=== PATIENT | male | born 1970 | race American Indian/Alaskan Native ===

== ENCOUNTER 2021-09-17 14:45 | Emergency (ER) | payer SELFPAY ==
[2021-09-17 17:07] VITALS: BP 163/107
--- NOTE | 2021-09-17 17:30 | Emergency Department Report ---
- General Chief Complaint: Sore Throat Stated Complaint: COLD/TOOTHACHE Time Seen by Provider: 09/17/21 17:08 Source: patient Mode of arrival: Ambulatory Limitations: No Limitations - History of Present Illness Initial Comments: 50-year-old black male with no past medical history presents to the emergency department for evaluation of cough cold congestion and toothache. He states that he sweats a lot at night and his roommate has had the air conditioner on low and he thinks that he has developed a cold. He also complains of right lower toothache pain. He denies fever, shortness of breath, chest pain. MD Complaint: cough, rhinorrhea -: Gradual, days(s) Severity: mild (1) Associated Symptoms: rhinorrhea, nasal congestion, cough. denies: fever, chills, myalgias, diaphoresis, headache, sore throat, stiff neck, chest pain, shortness of breath, abdominal pain, nausea, vomiting, diarrhea, dysuria, rash, confusion, right sweats, epistaxis, hoarseness, ear pain - Related Data Previous Rx's Medication Instructions Recorded Last Taken Type Amoxicillin [Amoxicillin TAB] 875 mg PO BID 7 Days #14 tab 09/17/21 Unknown Rx Ibuprofen [Motrin 600 MG tab] 600 mg PO Q8H PRN #21 tablet 09/17/21 Unknown Rx Allergies Allergy/AdvReac Type Severity Reaction Status Date / Time No Known Allergies Allergy Verified 09/17/21 17:00 ED Review of Systems ROS: Stated complaint: COLD/TOOTHACHE Other details as noted in HPI Comment: All other systems reviewed and negative Constitutional: denies: chills, fever Eyes: denies: eye discharge, vision change ENT: dental pain. denies: ear pain, throat pain, hearing loss, congestion Respiratory: cough. denies: shortness of breath, SOB with exertion, SOB at rest Cardiovascular: denies: chest pain, palpitations Gastrointestinal: denies: abdominal pain, nausea, vomiting, diarrhea Genitourinary: denies: urgency, dysuria Musculoskeletal: denies: back pain Skin: denies: rash Neurological: denies: headache, weakness Psychiatric: denies: anxiety, depression ED Past Medical Hx - Past Medical History Hx Hypertension: Yes Hx Heart Attack/AMI: Yes Hx Congestive Heart Failure: Yes Additional medical history: thyroid - Surgical History Past Surgical History?: No - Social History Smoking Status: Current Every Day Smoker Substance Use Type: None - Medications Home Medications: Home Medications Medication Instructions Recorded Confirmed Last Taken Type Amoxicillin [Amoxicillin TAB] 875 mg PO BID 7 Days #14 tab 09/17/21 Unknown Rx Ibuprofen [Motrin 600 MG tab] 600 mg PO Q8H PRN #21 tablet 09/17/21 Unknown Rx ED Physical Exam - General Limitations: No Limitations General appearance: alert, in no apparent distress - Head Head exam: Present: atraumatic, normocephalic - Eye Eye exam: Present: normal appearance. Absent: conjunctival injection - Expanded ENT Exam Expanded Teeth exam: Present: dental caries, fractured tooth # (30), dental tenderness # (30) Throat exam: Positive: normal inspection. Negative: tonsillar erythema, tonsillomegaly, tonsillar exudate, R peritonsillar mass, L peritonsillar mass - Neck Neck exam: Present: normal inspection. Absent: lymphadenopathy - Respiratory Respiratory exam: Present: normal lung sounds bilaterally. Absent: respiratory distress, wheezes, rales, rhonchi, stridor, chest wall tenderness, accessory muscle use - Cardiovascular Cardiovascular Exam: Present: regular rate, normal heart sounds - GI/Abdominal GI/Abdominal exam: Present: soft, normal bowel sounds. Absent: distended, tenderness, rebound, rigid - Extremities Exam Extremities exam: Present: normal inspection, normal capillary refill. Absent: tenderness, pedal edema, joint swelling, calf tenderness - Back Exam Back exam: Present: normal inspection. Absent: CVA tenderness (R), CVA tenderness (L) - Neurological Exam Neurological exam: Present: alert, oriented X3, normal gait - Psychiatric Psychiatric exam: Present: normal affect, normal mood - Skin Skin exam: Present: warm, dry, intact, normal color ED Course Vital Signs 09/17/21 17:00 Temperature 98.4 F Pulse Rate 88 Respiratory 18 Rate Blood Pressure 163/107 Blood Pressure 163/107 [Right] O2 Sat by Pulse 97 Oximetry ED Medical Decision Making - Medical Decision Making 50-year-old black male with no past medical history presents to the emergency department for evaluation of cough cold congestion and toothache. He states that he sweats a lot at night and his roommate has had the air conditioner on low and he thinks that he has developed a cold. He also complains of right lower toothache pain. He denies fever, shortness of breath, chest pain. Exam consistent with URI with cough and congestion. Patient continues to deny shortness of breath and chest pain. Noted to have fracture of tooth #30 along with minimal erythema and edema to the gum surrounding area. No abscess noted. Patient will be treated with 7-day course of amoxicillin and naproxen. He is advised to follow-up with dentist and primary care provider for further evaluation and management. He verbalized understanding of and agreement with plan of care. Critical care attestation.: If time is entered above; I have spent that time in minutes in the direct care of this critically ill patient, excluding procedure time. ED Disposition Clinical Impression: Pain due to dental caries, URI with cough and congestion Disposition: 01 HOME / SELF CARE / HOMELESS Is pt being admited?: No Does the pt Need Aspirin: No Condition: Stable Instructions: Cough, Adult, [id number], Dental Abscess, [id number], Upper Respiratory Infection, Adult, [id number] Additional Instructions: Take medications as prescribed. Follow-up with with dentist for further evaluation of tooth and primary care provider. Return to the emergency department as needed. Prescriptions: Amoxicillin [Amoxicillin TAB] 875 mg PO BID 7 Days #14 tab Ibuprofen [Motrin 600 MG tab] 600 mg PO Q8H PRN #21 tablet PRN Reason: Pain Referrals: [facility] [Outside] - 3-5 Days [facility] [Outside] - 3-5 Days Forms: Work/School Release Form(ED) Time of Disposition: 17:30
== END 2021-09-17 18:56 | disposition home or self-care (01) ==
LOC: ED 14:45
DX: K02.9 Dental caries, unspecified (principal); J06.9 Acute upper respiratory infection, unspecified; I10 Essential (primary) hypertension; F17.200 Nicotine dependence, unspecified, uncomplicated
CPT/HCPCS: 99282

== ENCOUNTER 2021-09-21 14:36 | Emergency (ER) | payer SELFPAY ==
[2021-09-21] MEDS ORDERED: predniSONE 50 MG TAB PO ONE (17:58)
[2021-09-21] MEDS ORDERED: AZITHROMYCIN 250 MG TAB PO ONE (17:59)
--- NOTE | 2021-09-21 18:01 | Emergency Department Report ---
HPI - General Chief Complaint: Medical Clearance Time Seen by Provider: 09/21/21 17:55 - HPI HPI: For the last 4 days the patient has been complaining of nasal congestion with clear discharge and a yellow sputum productive cough. He denies nausea vomiting fever chills shortness of breath anosmia or any other associated symptoms. He has not been vaccinated for the COVID-19 virus. He has taken no medications for this. Mother makes this better nor worse. ED Past Medical Hx - Past Medical History Hx Hypertension: Yes Hx Heart Attack/AMI: Yes Hx Congestive Heart Failure: Yes Additional medical history: thyroid - Surgical History Past Surgical History?: No - Social History Smoking Status: Current Every Day Smoker Substance Use Type: None - Medications Home Medications: Home Medications Medication Instructions Recorded Confirmed Last Taken Type Amoxicillin [Amoxicillin TAB] 875 mg PO BID 7 Days #14 tab 09/17/21 09/21/21 Unknown Rx Ibuprofen [Motrin 600 MG tab] 600 mg PO Q8H PRN #21 tablet 09/17/21 09/21/21 Unknown Rx Albuterol Mdi (or & Nicu Only) 1 puff IH QID PRN #8.5 gram 09/21/21 Unknown Rx [ProAir HFA Inhaler] Benzonatate [Tessalon Perles] 100 mg PO Q8HR #21 cap 09/21/21 Unknown Rx predniSONE [Deltasone] 50 mg PO QDAY 5 Days #5 tab 09/21/21 Unknown Rx ED Review of Systems ROS: Stated complaint: COLD SX Other details as noted in HPI Comment: All other systems reviewed and negative Physical Exam - Physical Exam Vital Signs: Vital Signs 09/21/21 09/21/21 09/21/21 17:10 17:52 17:53 Temperature 98.4 F 98.4 F 98.2 F Pulse Rate 93 H 77 77 Respiratory 20 20 20 Rate Blood Pressure 128/75 Blood Pressure 179/114 128/75 [Right] O2 Sat by Pulse 97 100 100 Oximetry Physical Exam: Physical Exam: Constitutional: AAOX3. No acute distress. No diaphoresis. HENT: Normocephalic. Pupils equal and reactive. No throat edema or erythema. Neck: No neck rigidity or tenderness. Cardiovascular: Heart sounds: No murmur. Normal rate and regular rhythm. Pulses: Intact distal pulses. Lungs: No wheezing or rales. Prolonged expiratory phase. Chest wall: No tenderness. Abdominal: No distension. No mass/pulsatile mass. No abdominal tenderness, guarding nor rebound. Musculoskeletal: Normal range of motion. No edema, No calf TTP. Skin: Warm and dry. Neurological: Alert and oriented to person, place, and time. Psychiatric: Mood and affect normal. Normal cognition and memory. Normal judgement. ED Course Vital Signs 09/21/21 09/21/21 09/21/21 17:10 17:52 17:53 Temperature 98.4 F 98.4 F 98.2 F Pulse Rate 93 H 77 77 Respiratory 20 20 20 Rate Blood Pressure 128/75 Blood Pressure 179/114 128/75 [Right] O2 Sat by Pulse 97 100 100 Oximetry - Reevaluation(s) Reevaluation #1: 09/21/21 18:56 Chest x-ray did not show any acute disease. I will discharge him on medicines for bronchitis. I advised him to stop smoking. Critical care attestation.: If time is entered above; I have spent that time in minutes in the direct care of this critically ill patient, excluding procedure time. ED Disposition Clinical Impression: Bronchitis Disposition: 01 HOME / SELF CARE / HOMELESS Is pt being admited?: No Does the pt Need Aspirin: No Condition: Stable Instructions: How to Use a Dry Powder Inhaler, [id number], Chronic Bronchitis (ED) Additional Instructions: You have acute bronchitis. Is important that you take the antibiotics we prescribed you in the medicines as soon as possible. Prescriptions: predniSONE [Deltasone] 50 mg PO QDAY 5 Days #5 tab Albuterol Mdi (or & Nicu Only) [ProAir HFA Inhaler] 1 puff IH QID PRN #8.5 gram PRN Reason: Shortness Of Breath Benzonatate [Tessalon Perles] 100 mg PO Q8HR #21 cap Referrals: LUDWIN MARSH MD [Primary Care Provider] - 3-5 Days Print Language: [place]
--- NOTE | 2021-09-21 18:24 | XRay Report ---
CHEST 2 VIEWS INDICATION / CLINICAL INFORMATION: cough. COMPARISON: None available. FINDINGS: SUPPORT DEVICES: None. HEART / MEDIASTINUM: Borderline enlarged LUNGS / PLEURA: No significant pulmonary or pleural abnormality. No pneumothorax. ADDITIONAL FINDINGS: No significant additional findings. IMPRESSION: 1. Borderline cardiomegaly without CHF Signer Name: Shay Montoya MD Signed: 09/21/2021 6:20 PM Workstation Name: [id number]
[2021-09-21 19:18] VITALS: BP 121/78
== END 2021-09-21 19:17 | disposition home or self-care (01) ==
LOC: ED 14:36
DX: J40 Bronchitis, not specified as acute or chronic (principal); I11.0 Hypertensive heart disease with heart failure; I50.9 Heart failure, unspecified; I21.9 Acute myocardial infarction, unspecified; F17.200 Nicotine dependence, unspecified, uncomplicated
CPT/HCPCS: 71046; 99283; J7512